=== PATIENT | female | born 1985 | race Caucasian/White ===

== ENCOUNTER → 2024-11-29 | Outpatient (CLI) | payer BC ==
[~2024-11-29] MED LIST: ISOVUE-370 76% 100ML VIAL As Ordered ONE
== END ==
LOC: M RAD 10:07
PROVIDERS: ATTEND Nurse Practitioner Family
DX: R10.811 Right upper quadrant abdominal tenderness (principal); R10.816 Epigastric abdominal tenderness; R10.812 Left upper quadrant abdominal tenderness; R31.9 Hematuria, unspecified; Z90.49 Acquired absence of other specified parts of digestive tract; Z98.84 Bariatric surgery status; R16.0 Hepatomegaly, not elsewhere classified; K76.0 Fatty (change of) liver, not elsewhere classified; K56.1 Intussusception
CPT/HCPCS: 74178; Q9967